=== PATIENT | female | born 1975 | race Caucasian/White ===

== ENCOUNTER → 2017-02-09 | Outpatient (CLI) | payer OTHER ==
[~2017-02-09] VITALS: Ht 157.5 cm; Wt 101.6 kg
[~2017-02-09] MED LIST: ALLEGRA 180MG180 MG PO; GLUCOPHAGE XR500 M1 PO; SONATA5 MG PO; SYNTHROID0.088 MG/T PO; VITAMIN D32000 IU PO; ZOLOFT 100MG100 MG PO
[2017-02-10 12:38] VITALS: BP 126/80; PULSE 60
== END ==
LOC: LIGHT 15:30
DX: E66.01 Morbid (severe) obesity due to excess calories (principal); Z68.41 Body mass index [BMI] 40.0-44.9, adult; Z71.3 Dietary counseling and surveillance; E11.9 Type 2 diabetes mellitus without complications; E03.9 Hypothyroidism, unspecified

== ENCOUNTER 2017-03-02 15:12 | Inpatient (IN) | payer OTHER ==
[~2017-03-02] VITALS: Ht 157.6 cm; Wt 100.3 kg
[2017-04-22] VITALS (8 sets, daily range): BP systolic 102–122; BP diastolic 20–84; PULSE 58–84; TEMP 97.9–98.4
[2017-04-22] MEDS ORDERED: TYLENOL 325MG325 MG PO (08:15)
[2017-04-22] MEDS ORDERED: REQUIP 1MG T1 MG/TAB PO (08:16)
[2017-04-22] MEDS ORDERED: PRILOSEC 20MG20 MG PO (08:19)
[2017-04-23 01:15] VITALS: BP 102/54; PULSE 68; TEMP 98.9
[2017-04-23 04:54] VITALS: BP 128/65; PULSE 74; TEMP 98
[2017-04-23 09:59] VITALS: BP 111/65; PULSE 55; TEMP 99.5
== END 2017-04-23 17:30 | disposition home or self-care (01) | DRG 621 ==
LOC: SURG 04-08 07:30 → INPTSU 04-22 08:32 → SURG 04-22 08:32
PROVIDERS: Surgery
PROC: 0DB64Z3 Excision of Stomach, Percutaneous Endoscopic Approach, Vertical (ICD-10-PCS; principal; 2017-04-22 09:30)
DX: E66.01 Morbid (severe) obesity due to excess calories (principal); E03.9 Hypothyroidism, unspecified; E11.9 Type 2 diabetes mellitus without complications; Z68.41 Body mass index [BMI] 40.0-44.9, adult; Z79.84 Long term (current) use of oral hypoglycemic drugs
CPT/HCPCS: A9284; J0330; J1100; J1170; J1885; J2405; J2550; J2704; J2710; J3010; J7030

== ENCOUNTER → 2017-03-10 | Outpatient (CLI) | payer OTHER ==
[~2017-03-10] MED LIST changes: +PRILOSEC 20MG20 MG PO; +REQUIP 1MG T1 MG/TAB PO; +TYLENOL 325MG325 MG PO
== END ==
LOC: LIGHT
DX: Z01.89 Encounter for other specified special examinations (principal)

== ENCOUNTER → 2017-06-15 | Outpatient (CLI) | payer OTHER ==
[~2017-06-15] VITALS: Ht 157.5 cm; Wt 94.6 kg
[~2017-06-15] MED LIST changes: -SYNTHROID0.088 MG/T PO; +SYNTHROID0.1 MG/TAB PO
[2017-06-15 14:18] VITALS: BP 114/80; PULSE 72
== END ==
LOC: LIGHT 06-01 08:24
DX: E66.01 Morbid (severe) obesity due to excess calories (principal); Z68.38 Body mass index [BMI] 38.0-38.9, adult; Z71.3 Dietary counseling and surveillance; E11.9 Type 2 diabetes mellitus without complications; E03.9 Hypothyroidism, unspecified

== ENCOUNTER → 2017-12-28 | Outpatient (CLI) | payer OTHER ==
[~2017-12-28] VITALS: Ht 157.5 cm; Wt 88.5 kg
[2017-12-28 13:10] VITALS: BP 114/78; PULSE 68
== END ==
LOC: LIGHT 12:45
DX: E66.01 Morbid (severe) obesity due to excess calories (principal); Z68.35 Body mass index [BMI] 35.0-35.9, adult; Z71.3 Dietary counseling and surveillance; E11.9 Type 2 diabetes mellitus without complications; E03.9 Hypothyroidism, unspecified; Z98.84 Bariatric surgery status
CPT/HCPCS: G0463

== ENCOUNTER → 2018-05-31 | Outpatient (CLI) | payer OTHER ==
[~2018-05-31] VITALS: Ht 157.5 cm; Wt 89.6 kg
[~2018-05-31] MED LIST changes: +SYNTHROID0.075 MG/T PO; -SYNTHROID0.1 MG/TAB PO
[2018-05-31 16:33] VITALS: BP 110/80; PULSE 100
== END ==
LOC: LIGHT
DX: E11.9 Type 2 diabetes mellitus without complications (principal); E03.9 Hypothyroidism, unspecified; Z98.84 Bariatric surgery status; E66.01 Morbid (severe) obesity due to excess calories; Z68.36 Body mass index [BMI] 36.0-36.9, adult; Z71.3 Dietary counseling and surveillance
CPT/HCPCS: G0463

== ENCOUNTER 2021-01-15 11:43 | Emergency (ER) | payer BC ==
[~2021-01-15] VITALS: Ht 157.5 cm; Wt 90.9 kg
[2021-01-15 13:22] VITALS: BP 138/64; PULSE 80; TEMP 99.5
== END 2021-01-15 13:24 | disposition home or self-care (01) ==
LOC: COL.ER 11:43
DX: U07.1 COVID-19 (principal); E66.01 Morbid (severe) obesity due to excess calories

== ENCOUNTER → 2022-09-11 | Outpatient (CLI) | payer BC ==
[~2022-09-11] MED LIST changes: +ANTIVERT 25MG25 MG PO; +DESYREL 50MG50 MG PO; +MINOXIDIL 2.5 PO
== END ==
LOC: MC.RAD 13:55
DX: Z12.31 Encounter for screening mammogram for malignant neoplasm of breast (principal)

== ENCOUNTER → 2022-09-22 | Outpatient (CLI) | payer BC | LOC: MC.RAD 12:46 | DX: R92.8 Other abnormal and inconclusive findings on diagnostic imaging of breast (principal) ==

== ENCOUNTER → 2024-03-04 | Outpatient (CLI) | payer BC ==
[~2024-03-04] MED LIST changes: +DESYREL 100MG100 MG PO; +FLEXERIL 1010 MG/TAB PO; +LYRICA 25MG CAP25 MG PO; +NEXIUM 40MG40 MG PO; +NORCO 325 MG-51 TAB PO; +PEPCID 20MG TAB20 MG PO; +PROTONIX 40MG T40 MG PO; +SAXENDA6 MG/ML SQ; +SYNTHROID0.1 MG/TAB PO
== END ==
LOC: MC.RAD 10:39
DX: Z12.31 Encounter for screening mammogram for malignant neoplasm of breast (principal); N63.11 Unspecified lump in the right breast, upper outer quadrant; N63.20 Unspecified lump in the left breast, unspecified quadrant

== ENCOUNTER → 2024-03-11 | Outpatient (CLI) | payer BC | LOC: MC.RAD 08:33 | DX: N63.22 Unspecified lump in the left breast, upper inner quadrant (principal); R59.0 Localized enlarged lymph nodes ==

== ENCOUNTER → 2024-03-15 | Outpatient (CLI) | payer BC | LOC: COL.RAD 07:24 | DX: M51.36 Other intervertebral disc degeneration, lumbar region (principal); M48.061 Spinal stenosis, lumbar region without neurogenic claudication ==